=== PATIENT | female | born 1980 | race African-American/Black ===

== ENCOUNTER → 2023-08-18 14:38 | Outpatient (REF) | payer BC, SELFPAY | LOC: WDC 14:38 | PROVIDERS: ATTENDING PHYSICIAN Nurse Practitioner Adult Health | DX: R92.8 Other abnormal and inconclusive findings on diagnostic imaging of breast (principal) | CPT/HCPCS: 76642 ==

== ENCOUNTER → 2023-08-22 14:38 | Outpatient (REF) | payer BC, SELFPAY | LOC: HWRCS 14:38 | PROVIDERS: ATTENDING PHYSICIAN Nurse Practitioner Adult Health | DX: I10 Essential (primary) hypertension (principal); I51.7 Cardiomegaly | CPT/HCPCS: 93306 ==

== ENCOUNTER → 2023-09-06 13:08 | Outpatient (REF) | payer BC, SELFPAY | LOC: RCS 13:08 | PROVIDERS: ATTENDING PHYSICIAN Internal Medicine Cardiovascular Disease; FAMILY PHYSICIAN Nurse Practitioner Adult Health | DX: R00.2 Palpitations (principal) | CPT/HCPCS: 93225; 93226 ==

== ENCOUNTER → 2023-09-26 08:05 | Outpatient (REF) | payer BC, SELFPAY | LOC: PAVMRI 08:05 | PROVIDERS: ATTENDING PHYSICIAN Internal Medicine Cardiovascular Disease; FAMILY PHYSICIAN Nurse Practitioner Adult Health | DX: R93.1 Abnormal findings on diagnostic imaging of heart and coronary circulation (principal) | CPT/HCPCS: 75561; 75565; A9585 ==

== ENCOUNTER → 2023-11-15 13:45 | Outpatient (REF) | payer BC, SELFPAY | LOC: HWRAD 13:45 | PROVIDERS: FAMILY PHYSICIAN Nurse Practitioner Adult Health | DX: Z30.430 Encounter for insertion of intrauterine contraceptive device (principal) | CPT/HCPCS: 76830; 76856 ==

== ENCOUNTER 2024-01-06 08:59 | Emergency (ER) | payer BC, SELFPAY ==
[2024-01-06 09:02] VITALS: BP 141/83
[2024-01-06 09:26] VITALS: BP 137/72
[2024-01-06 09:27] LABS: % Basophils 0.4 % (0-2); % Eosinophils 0.6 % (0-6); % Immature Granulocytes 0.2 % (0-0.5); % Lymphocytes 32.1 % (20.5-51.1); % Monocytes 4.8 % (1.7-9.3); % Neutrophils 61.9 % (42.2-75.2); Absolute Basophils 0.1 10^3/uL (0-0.2); Absolute Eosinophils 0.1 10^3/uL (0-0.7); Absolute Lymphocytes 3.9 10^3/uL (1.2-3.4); Absolute Monocytes 0.6 10^3/uL (0.1-0.6); Absolute Neutrophils 7.6 10^3/uL (1.4-6.5); Hemoglobin 11.5 g/dL (12.0-16.0); Mean Corp Hgb Conc. 31.9 g/dL (33.0-37.0); Mean Corpuscular Hgb 26.2 pg (27.0-31.0); Nucleated Red Blood Cells % 0 %; Platelet Count 334 10^3/uL (130-400); Red Blood Cell Count 4.39 10^6/uL (4.20-5.40); Red Cell Dist. Width 15.1 % (11.5-14.5); White Blood Cell Count 12.2 10^3/uL (4.8-10.8)
--- NOTE | 2024-01-06 09:31 | ED.GENMED ---
History of Present Illness
General
Chief Complaint: Vaginal Bleeding
Time Seen by Provider: 01/06/24 09:14
History of Present Illness
History of Present Illness:
43-year-old female with past medical history of hypertension presenting to the emergency department for concern of vaginal bleeding. Patient reports that her last menstrual period started 8 days ago and she has had persistent vaginal bleeding with
passage of large clots. Notes that she called her [employer] at [facility], and the office advised her to come to the hospital. She reports that last week she was having some breakthrough bleeding and was started on a course of progesterone, so did
not have a full menstrual cycle. She denies ever having a menstrual cycle that has been this heavy. She notes that she is changing her pad every hour. She does note some generalized fatigue. Denies chest pain or difficulty breathing. Denies any
history of blood transfusions. Does note history of fibroids in the past, however reports that she had a pelvic ultrasound in November, which showed that her fibroids have resolved. Patient has an IUD in place. She denies any significant abdominal
pain. She denies fever. She denies additional acute medical complaints
Past History
Past History
ED Past Medical History: GERD, Other (Irritable bowel syndrome, heart murmur of uncertain etiology, scoliosis and chronic back pain, constipation most likely secondary to chronic narcotic use (Percocet)) and Other (Then tests last one diagnosed 6
months ago at the [facility])
ED Past Surgical History: Gynecological (D&E)
Social History
Tobacco: Former smoker
Alcohol: None
Drug: None
Personal: Single
Living: with family
Family History
Family History: Negative Diabetes, Hypertension, Early CAD, Asthma or Cancer
Phy Exam
Physical Exam
Physical Exam:
GENERAL: Alert , in no apparent distress
EYE: pupils equal and reactive
NECK: Supple
ENT: o/p clr, mmm.
CARDIAC: Regular rate and rhythm .
LUNGS: Clear breath sounds bilaterally, no acute respiratory distress, no wheezes/rales/rhonchi
ABDOMEN: Soft, without focal tenderness, no r/g
NEUROLOGICAL: Alert and oriented, no focal neuro deficits
SKIN: Warm and dry, skin intact.
MUSCULOSKELETAL: No edema, well perfused.
PSYCH: Normal and appropriate interaction.
: Scant amount of blood in the vaginal vault. No pooling
Course
Orders/Labs/Results
Orders:
Orders
01/06/24 09:18
Test Result ONCE
01/06/24 09:19
Complete Blood Count/With Diff Urgent
Comprehensive Metabolic Panel Urgent
HCG, Serum Qualitative Screen Urgent
01/06/24 10:39
US Pelvis W Transvag Combined Urgent
Reason For Exam: heavy vaginal bleeding
01/06/24 10:44
0.9% Sodium Chloride 500 ml [Nss] 500 ml IV BOLUS
01/06/24 10:48
Urinalysis Urgent
Date Specimen was Collected: 01/06/24
Time Specimen was Collected: 10:47
Urine Microscopic Urgent
Date Specimen was Collected: 01/06/24
Time Specimen was Collected: 10:47
Abnormal Lab Results
01/06/24 01/06/24
09:19 10:48
WBC 12.2 H 10^3/uL
(4.8-10.8)
Hgb 11.5 L g/dL
(12.0-16.0)
Hct 36.0 L %
(37.0-47.0)
MCH 26.2 L pg
(27.0-31.0)
MCHC 31.9 L g/dL
(33.0-37.0)
RDW 15.1 H %
(11.5-14.5)
Absolute Neuts (auto) 7.6 H 10^3/uL
(1.4-6.5)
Absolute Lymphs (auto) 3.9 H 10^3/uL
(1.2-3.4)
Potassium 3.4 L mmol/L
(3.5-5.1)
Urine Occult Blood 4+ A
(Negative)
Urine RBC 80-90 A /HPF
(0-2)
01/06/24 09:19
01/06/24 09:19
Vital Signs
Initial and Last Documented VS:
Initial Vital Signs
Temp Pulse Resp BP Pulse Ox
97.9 F 77 16 141/83 98
01/06/24 09:02 01/06/24 09:02 01/06/24 09:02 01/06/24 09:02 01/06/24 09:02
Last Documented Vital Signs
Temp Pulse Resp BP Pulse Ox
97.9 F 71 21 137/72 100
01/06/24 09:02 01/06/24 11:00 01/06/24 11:00 01/06/24 09:26 01/06/24 10:45
MDM/Problems Addressed
MDM/Problems Addressed:
43-year-old female with history of hypertension presenting for heavy menstrual bleeding for the past 8 days. Vital signs on arrival are significant for mild hypertension.
On exam patient is well-appearing, no acute distress, resting comfortably. Benign abdominal exam, no, soft nondistended. No palpation of any masses. On exam, scant amount of blood in the vaginal vault without concern for hemorrhage. At
this time suspect dysfunctional uterine bleeding. Patient had a course of progesterone last month, could be from hormonal change. Will check status to ensure patient is not miscarrying. Will also check hemoglobin to ensure patient does
not require any transfusion needs, less likely without tachycardia or any hemodynamic instability. Do not feel patient requires any advanced imaging at this time. On review of EMR, patient had pelvic ultrasound in November, unremarkable with
appropriate placement of IUD.
10:40 - Patient's hemoglobin within normal limits. Labs otherwise unremarkable. negative. Patient continues to express concern regarding her level of bleeding. She is requesting abdominal ultrasound. Will obtain, however discussed
that patient will require continued follow-up with her license examiner regarding her dysfunctional uterine bleeding and ultimate plan going forward for medical therapy.
13:10 - Ultrasound without abnormality, shows thickened endometrium, consistent with menstrual cycle. IUD not visualized. Patient remains hemodynamically stable. Patient notes that she has a refill of the progesterone. Advised that she discuss
taking the progesterone with her license examiner directly. Otherwise feel stable for discharge. Strict return precautions communicated to patient verbalized understanding
*Critical Care Note
Total Time (30-74mins, 75-104mins- exclusive of procedures): Not Applicable
ED Attending Note
-
Portions of this chart may have been created with voice recognition software.� Occasional wrong word or��sound alike� substitutions may have occurred due to the inherent limitations of voice recognition software.
Discharge Plan
Departure
Prescriptions:
No Action
Muscle Relaxer
1 tab PO DAILY
Patient Comments:
'NAME/DOSE MEDICATION UNKNOWN 'HAVE BEEN ON MONTH OR SO'
ibuprofen 800 MG tablet
800 mg PO Q6HPRN PRN (Reason: pain) Qty: 10 0RF
ondansetron HCl 4 MG tablet
4 mg PO TIDPRN PRN (Reason: nausea) Qty: 10 0RF
Referrals:
Shraddha Bradley CRNP [Family Provider] -
Interventions
Interventions:
*Risk Screen - Suicide Last Done: 01/06/24 09:02
*General Assessment Last Done: 01/06/24 09:02
*Neglect/Abuse Screening Last Done: 01/06/24 09:02
ED-Female Genitourinary Assessment Last Done: 01/06/24 09:35
Discharge Date and Time
Print Language: MARSHALLESE
[2024-01-06 09:47] LABS: ALT (SGPT) 15 U/L (0-35); AST (SGOT) 23 U/L (14-36); Albumin 4.4 g/dl (3.5-5.0); Alkaline Phosphatase 85 U/L (38-126); Blood Urea Nitrogen 11 mg/dl (7-17); Calcium 9.3 mg/dl (8.4-10.2); Carbon Dioxide 29 mmol/L (22-30); Chloride 99 mmol/L (98-107); Glucose 90 mg/dl (70-99); Potassium 3.4 mmol/L (3.5-5.1); Sodium 137 mmol/L (135-145); Total Bilirubin 0.5 mg/dl (0.2-1.3); Total Protein 7.5 g/dl (6.3-8.2); eGFR > 60.00
[2024-01-06 09:51] LABS: HCG, Serum Qualitative Screen Negative
[2024-01-06] MEDS: NSS 500 IV (10:46)
[2024-01-06 11:01] LABS: Urine Albumin Negative (Neg - Trace); Urine Bilirubin Negative (Negative); Urine Character Clear (Clear); Urine Color Yellow; Urine Glucose Negative (Negative); Urine Ketone Negative (Negative); Urine Leukocyte Negative (Negative); Urine Nitrite Negative (Negative); Urine Occult Blood 4+ (Negative); Urine Specific Gravity 1.005 (<1.030); Urine Urobilinogen Negative (Neg - 1+)
[2024-01-06 11:30] LABS: Urine Squamous Cell 21-25 /LPF (Few)
[2024-01-06 11:32] LABS: Urine Amorphous Seen; Urine Red Blood Cell 80-90 /HPF (0-2); Urine White Cell 0-2 /HPF (0-5)
[2024-01-06 13:24] VITALS: BP 145/91
== END 2024-01-06 13:24 | disposition home or self-care (01) ==
LOC: EMR 08:59
PROVIDERS: EMERGENCY PHYSICIAN Student in an Organized Health Care Education/Training Program; FAMILY PHYSICIAN Nurse Practitioner Adult Health
DX: N93.8 Other specified abnormal uterine and vaginal bleeding (principal); R53.83 Other fatigue; K21.9 Gastro-esophageal reflux disease without esophagitis; K58.9 Irritable bowel syndrome, unspecified; R01.1 Cardiac murmur, unspecified; Z87.891 Personal history of nicotine dependence
CPT/HCPCS: 99284; 96360; 76830; 76856; 80053; 81003; 81015; 84703; 85025

== ENCOUNTER → 2024-01-10 13:25 | Outpatient (REF) | payer BC, SELFPAY | LOC: HWRAD 13:25 | PROVIDERS: ATTENDING PHYSICIAN Obstetrics & Gynecology; FAMILY PHYSICIAN Nurse Practitioner Adult Health | DX: T83.32XA Displacement of intrauterine contraceptive device, initial encounter (principal) | CPT/HCPCS: 72170; 74018 ==

== ENCOUNTER → 2024-11-15 14:42 | Outpatient (REF) | payer BC, SELFPAY | LOC: HWWDC 14:42 | PROVIDERS: ATTENDING PHYSICIAN Nurse Practitioner Adult Health; REFERRING PHYSICIAN Obstetrics & Gynecology | DX: Z12.31 Encounter for screening mammogram for malignant neoplasm of breast (principal) | CPT/HCPCS: 77063; 77067 ==

== ENCOUNTER → 2025-04-29 09:34 | Outpatient (REF) | payer BC, SELFPAY | LOC: RCS 09:34 | PROVIDERS: ATTENDING PHYSICIAN Internal Medicine Cardiovascular Disease; FAMILY PHYSICIAN Nurse Practitioner Adult Health | DX: R00.2 Palpitations (principal) | CPT/HCPCS: 93017 ==